=== PATIENT | female | born 1980 | race Caucasian/White ===

== ENCOUNTER → 2017-04-17 | Outpatient (CLI) | payer OTHER ==
--- NOTE | 2017-04-18 07:40 | MM ---
Reason for exam: follow-up at short interval from prior study. Last mammogram was performed 9 months ago. History: Family history of breast cancer in maternal aunt at age 50. Physical Findings: Nurse did not find any significant physical abnormalities on exam. MG Diagnostic Mammo w CAD JAYCOB Bilateral CC and MLO view(s) were taken. Prior study comparison: August 01, 2016, left breast MG work up mamm w CAD LT. July 17, 2016, bilateral MG screening mammo w CAD. The breast tissue is extremely dense which could obscure a lesion on mammography. Right upper outer quadrant architectural distortion and fibroadenoma. Left upper outer quadrant fibroadenoma 4.3cm from nipple. These results were verbally communicated with the patient and result sheet given to the patient on 04/17/17. ASSESSMENT: Incomplete: need additional imaging evaluation, BI-RAD 0 RECOMMENDATION: Ultrasound of both breasts. (upper outer quadrant)
--- NOTE | 2017-04-18 07:43 | USB ---
Reason for exam: additional evaluation requested from abnormal screening. History: Family history of breast cancer in maternal aunt at age 50. US Breast Limited BILAT Right breast ultrasound demonstrates dense tissue corresponding to bilateral fibroadenoma. Left breast ultrasound demonstrates dense tissue corresponding to bilateral fibroadenoma. These results were verbally communicated with the patient and result sheet given to the patient on 04/17/17. ASSESSMENT: Benign, BI-RAD 2 RECOMMENDATION: Routine screening mammogram of both breasts at age 40.
== END | disposition home or self-care (01) ==
LOC: RADMAMWWP 12:55
PROVIDERS: ATTEND Obstetrics & Gynecology
DX: N63 Unspecified lump in breast (principal); R92.8 Other abnormal and inconclusive findings on diagnostic imaging of breast
CPT/HCPCS: 76642; G0204

== ENCOUNTER → 2017-08-28 | Outpatient (CLI) | payer OTHER ==
--- NOTE | 2017-08-28 09:00 | XR ---
EXAMINATION TYPE: XR wrist limited LT DATE OF EXAM: 08/28/2017 COMPARISON: NONE HISTORY: Pain TECHNIQUE: Two views submitted. FINDINGS: The osseous structures are intact. The joint spaces are preserved and there is no acute fracture or dislocation. Soft tissue fullness along the palmar aspect of the wrist. IMPRESSION: 1. No osseous abnormality. If there is a soft tissue abnormality correlate with MRI.
== END | disposition home or self-care (01) ==
LOC: RADXRMAIN 08:38
PROVIDERS: ATTEND Family Medicine
DX: M67.432 Ganglion, left wrist (principal)

== ENCOUNTER → 2017-10-22 | Outpatient (CLI) | payer OTHER ==
--- NOTE | 2017-10-22 12:34 | US ---
EXAMINATION TYPE: US pelvis complete transvag DATE OF EXAM: 10/22/2017 COMPARISON: US CLINICAL HISTORY: Dysmenorrhea N94.6, N92.0 Menorrhagia. LLQ pain with heavy menses, ablation 2 years ago TECHNIQUE: Transvaginal (TV) and Transabdominal (TA) . Transabdominal sonographic images of the pel vis were acquired. Transvaginal sonographic images were medically necessary to better assess the fol lowing anatomy: Uterus, endometrium Date of LMP: 10/10/2017 EXAM MEASUREMENTS: Uterus: 10.2 x 4.6 x 5.7 cm Endometrial Stripe: 0.8 cm Right Ovary: 3.2 x 3.0 x 2.3 cm Left Ovary: 2.3 x 2.2 x 1.8 cm 1. Uterus: Anteverted Heterogeneous with probable fibroid anterior/left= 2.6 x 2.3 x 2.8 cm/ Fluid at scar= 1.2 x 0.7 x 1.1 cm 2. Endometrium: Unremarkable 3. Right Ovary: Dominant follicle = 2.1 x 1.6 x 1.8 cm 4. Left Ovary: wnl 5. Bilateral Adnexa: wnl 6. Posterior cul-de-sac: wnl IMPRESSION: 1. Redemonstration of diffuse heterogeneity of the myometrium with multiple probable intramural fibro ids the most pronounced measuring 2.8 cm anteriorly. 2. Fluid collection at the scar within the myometrium likely relates to a small seroma. 3. Endometrial thickness is within normal limits.
== END | disposition home or self-care (01) ==
LOC: RADUSWWP 10:38
PROVIDERS: ATTEND Obstetrics & Gynecology
DX: N85.8 Other specified noninflammatory disorders of uterus (principal); N92.0 Excessive and frequent menstruation with regular cycle; Z98.890 Other specified postprocedural states
CPT/HCPCS: 36415; 76830; 76856; 83001; 83002; 84146; 84443

== ENCOUNTER 2018-04-10 17:43 | Emergency (ER) | payer OTHER ==
[2018-04-10 17:53] VITALS: RESP 18
[2018-04-10] MEDS ORDERED: LIDOCAINE 1%-EPI 1:100,000 30 ML VIAL SQ STA (17:59)
[2018-04-10] MEDS ORDERED: DIPH,PERTUS(ACELL)TETVAC-LF 0.5 ML VIAL IM ONE (17:59)
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
[2018-04-10] MEDS ORDERED: ALPRAZolam 1 MG TAB PO STA (19:25)
--- NOTE | 2018-04-10 20:04 | CT ---
EXAMINATION TYPE: CT brain wo con DATE OF EXAM: 04/10/2018 COMPARISON: None HISTORY: Frontal head injury. Fell down stairs. CT DLP: 1036.3 mGycm. Automated Exposure Control for Dose Reduction was Utilized. TECHNIQUE: CT scan of the head is performed without contrast. FINDINGS: Ventricles and sulci appear normal. There is no mass effect nor midline shift. There is no sign of intracranial hemorrhage. The calvarium is intact. IMPRESSION: Negative CT scan of the brain.
[2018-04-10 20:36] VITALS: BP 141/89; PULSE 69; TEMP 98.4
== END 2018-04-10 20:35 | disposition home or self-care (01) ==
LOC: EC 17:43
DX: S01.81XA Laceration without foreign body of other part of head, initial encounter (principal); S01.511A Laceration without foreign body of lip, initial encounter; F41.9 Anxiety disorder, unspecified; Z79.1 Long term (current) use of non-steroidal anti-inflammatories (NSAID); Z79.3 Long term (current) use of hormonal contraceptives; Z79.899 Other long term (current) drug therapy; Z88.5 Allergy status to narcotic agent; Z23 Encounter for immunization; Y00.XXXA Assault by blunt object, initial encounter; Y93.89 Activity, other specified
CPT/HCPCS: 12013; 12014; 70450; 81025; 90471; 90715; 99284

== ENCOUNTER → 2018-04-17 | Outpatient (CLI) | payer OTHER ==
--- NOTE | 2018-04-17 09:56 | XR ---
EXAMINATION TYPE: XR ribs LT DATE OF EXAM: 04/17/2018 COMPARISON: NONE HISTORY: Palpable abnormality near the left third or fourth rib TECHNIQUE: 2 views FINDINGS: Visualized lung hilario clear. Osseous structures intact. IMPRESSION: No osseous abnormality. If there is concern for soft tissue anomaly correlate with MRI or ultrasound.
== END | disposition home or self-care (01) ==
LOC: RADXRMAIN 09:19
PROVIDERS: ATTEND Family Medicine
DX: R22.2 Localized swelling, mass and lump, trunk (principal)

== ENCOUNTER → 2018-06-02 | Outpatient (CLI) | payer OTHER ==
--- NOTE | 2018-06-02 14:56 | XR ---
EXAMINATION TYPE: XR chest 2V DATE OF EXAM: 06/02/2018 COMPARISON: NONE HISTORY: Shortness of breath, R07.89 TECHNIQUE: Frontal and lateral views of the chest are obtained. FINDINGS: There is no focal air space opacity, pleural effusion, or pneumothorax seen. The cardiac silhouette size is within normal limits. The osseous structures are intact. IMPRESSION: No acute cardiopulmonary process.
== END | disposition home or self-care (01) ==
LOC: RADXRMAIN 11:55
PROVIDERS: ATTEND Family Medicine
DX: R07.89 Other chest pain (principal)
CPT/HCPCS: 71046

== ENCOUNTER → 2018-07-22 | Outpatient (CLI) | payer OTHER ==
--- NOTE | 2018-07-22 22:44 | MR ---
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 Diffusion weighted imaging is performed. FINDINGS: No evidence for acute infarction, hemorrhage, mass, mass effect, midline shift, herniation, effacemen t of basal cisterns, or extra-axial fluid collection. The ventricles and sulci are age-appropriate. Major intracranial flow voids are intact. T2/FLAIR weighted sequences show minimal burden of white white matter change with approximately 5 foc i in total primarily in the left cerebral hemisphere located in the subcortical region. There is no a bnormal signal seen within the thalamus, hypothalamic region, brainstem Midline structures demonstrate normal morphology. The craniocervical junction is normal. Post contrast images demonstrate no evidence of pathologic enhancement. Dural venous sinuses are pat ent. Relatively symmetric enhancement of the cavernous sinuses. Mild mucosal thickening within the right maxillary sinus. Patient gave slightly divergent which may r eflect underlying history. No intraorbital lesion is seen. IMPRESSION: 1. Minimal burden of T2 bright white matter change primarily in the subcortical region of the left ce rebral hemisphere. Approximately 5 foci are present. These are nonspecific and may relate to early ch anges of chronic small vessel ischemic disease. Chronic migraines are also possible. In the appropria te clinical context, demyelinating disease could also be in the differential. 2. Otherwise, no intracranial abnormality seen.
== END | disposition home or self-care (01) ==
LOC: RADMRIMAIN 08:06
PROVIDERS: ATTEND Internal Medicine Critical Care Medicine
DX: R90.89 Other abnormal findings on diagnostic imaging of central nervous system (principal); Z88.5 Allergy status to narcotic agent
CPT/HCPCS: 70553; A9585

== ENCOUNTER → 2018-07-22 | Outpatient (CLI) | payer OTHER ==
--- NOTE | 2018-07-22 09:40 | CT ---
EXAMINATION TYPE: CT chest w con DATE OF EXAM: 07/22/2018 COMPARISON: None HISTORY: Randy's syndrome, chest pain. CT DLP: 175.5 mGycm Automated exposure control for dose reduction was used. CONTRAST: CT scan of the chest is performed with IV Contrast, patient injected with 100 mL of Isovue 300. FINDINGS: LUNGS: The lungs are grossly clear, there is no concerning parenchymal mass or nodule identified. T here is no pleural effusion or pneumothorax seen. The tracheobronchial tree is patent. MEDIASTINUM: There are no greater than 1 cm hilar or mediastinal lymph nodes. No pericardial effusi on is seen. Thoracic aorta is of normal caliber. The heart is not enlarged. 2 small calcified lymph nodes right hilar region. UPPER ABDOMEN: No significant abnormality appreciated. OTHER: No additional significant abnormality is seen. IMPRESSION: 1. No abnormality identified to account for the patient's symptoms.
== END | disposition home or self-care (01) ==
LOC: RADCTMAIN 08:16
PROVIDERS: ATTEND Internal Medicine Critical Care Medicine
DX: G90.2 Horner's syndrome (principal); Z88.5 Allergy status to narcotic agent
CPT/HCPCS: 71260; Q9967

== ENCOUNTER → 2019-04-21 | Outpatient (CLI) | payer OTHER | END | disposition home or self-care (01) | LOC: LABWHC1 12:54 | PROVIDERS: ATTEND Family Medicine | DX: L02.11 Cutaneous abscess of neck (principal) | CPT/HCPCS: 36415; 86618 ==

== ENCOUNTER 2020-05-03 18:18 | Emergency (ER) | payer OTHER ==
[2020-05-03 18:26] VITALS: TEMP 98.3
[2020-05-03 19:12] LABS: Basophils % (A) 0 %; Eosinophils # (A) 0.2 k/uL (0-0.7); Eosinophils % (A) 2 %; HCT 33.7 % (34.0-46.0); Lymphocytes # (A) 1.9 k/uL (1.0-4.8); Lymphocytes % (A) 19 %; MCH 30.2 pg (25.0-35.0); MCHC 32.7 g/dL (31.0-37.0); MCV 92.3 fL (80.0-100.0); Mean Platelet Volume 6.9; Monocytes # (A) 0.3 k/uL (0-1.0); Monocytes % (A) 3 %; Neutrophils # (A) 7.4 k/uL (1.3-7.7); Neutrophils % (A) 74 %; Platelet Count 259 k/uL (150-450); RBC 3.65 m/uL (3.80-5.40); RDW 12.7 % (11.5-15.5)
[2020-05-03 19:16] LABS: INR 0.9 (<1.2); Partial Thromboplastin Time 23.6 sec (22.0-30.0); Prothrombin Time 9.8 sec (9.0-12.0)
[2020-05-03 19:17] LABS: ALT 41 U/L (4-34); AST 50 U/L (14-36); African American GFR (CKD) >90 (>60 ml/min/1.73 sqM); Albumin 4.1 g/dL (3.5-5.0); Alkaline Phosphatase 65 U/L (38-126); Anion Gap 12 mmol/L; Blood Urea Nitrogen 15 mg/dL (7-17); Calcium 9.4 mg/dL (8.4-10.2); Carbon Dioxide 22 mmol/L (22-30); Chloride 105 mmol/L (98-107); Glucose 123 mg/dL (74-99); Non-African American GFR(CKD) >90 (>60 ml/min/1.73 sqM); Potassium 3.2 mmol/L (3.5-5.1); Sodium 139 mmol/L (137-145); Total Bilirubin 0.4 mg/dL (0.2-1.3)
--- NOTE | 2020-05-03 19:48 | ED ---
General Adult HPI - General Chief complaint: Skin/Abscess/Foreign Body Stated complaint: rt sided swelling Time Seen by Provider: 05/03/20 18:36 Source: patient, RN notes reviewed Mode of arrival: ambulatory Limitations: no limitations - History of Present Illness Initial comments: 39-year-old female with a past medical history of anemia, carpal tunnel presents to the emergency department for a chief complaint of bruising. Patient reports that 2 weeks ago she noticed a bruise on her left stark. Patient states the bruises were large and she did not remember hitting her stark on anything. Patient reports that started to go away and then she noticed a bruise on her right thigh. Patient states today when she woke up she had a large bruise on her right breast. States that this alarmed her so she came to the emergency room. Patient does take iron for anemia. No blood disorders. No blood thinners.Patient has no other complaints at this time including shortness of breath, chest pain, abdominal pain, nausea or vomiting, headache, or visual ch anges. - Related Data Home Medications Medication Instructions Recorded Confirmed Naproxen 500 mg PO BID 04/10/18 05/03/20 Albuterol Inhaler [Ventolin Hfa 1 puff INHALATION RT-QID PRN 05/03/20 05/03/20 Inhaler] Ferrous Sulfate [Feosol] 325 mg PO DAILY 05/03/20 05/03/20 Fluticasone Propion/Salmeterol 1 inhalation PO RT-BID 05/03/20 05/03/20 [Wixela 250-50 Inhub] Montelukast [Singulair] 10 mg PO HS 05/03/20 05/03/20 Multivitamins, Thera [Multivitamin 1 tab PO DAILY 05/03/20 05/03/20 (formulary)] Norgestimate-Ethinyl Estradiol 1 tab PO DAILY 05/03/20 05/03/20 [Tri-Sprintec Tablet] Prazosin HCl 2 mg PO DAILY 05/03/20 05/03/20 Vortioxetine Hydrobromide 5 mg PO DAILY 05/03/20 05/03/20 [Trintellix] busPIRone HCL 15 mg PO BID 05/03/20 05/03/20 clonazePAM 1 mg PO BID 05/03/20 05/03/20 Allergies Allergy/AdvReac Type Severity Reaction Status Date / Time morphine AdvReac Itching Verified 05/03/20 19:25 Review of Systems ROS Statement: Those systems with pertinent positive or pertinent negative responses have been documented in the HPI. ROS Other: All systems not noted in ROS Statement are negative. Past Medical History Past Medical History: No Reported History Additional Past Medical History / Comment(s): ANEMIA, carpal tunnel. History of Any Multi-Drug Resistant Organisms: None Reported Past Surgical History: Section, Tubal Ligation, Uterine Ablation Past Psychological History: Anxiety, PTSD Smoking Status: Never smoker Past Alcohol Use History: Occasional Past Drug Use History: Marijuana - Past Family History Mother Family Medical History: Cancer Father Family Medical History: No Reported History General Exam Limitations: no limitations General appearance: alert, in no apparent distress Head exam: Present: atraumatic, normocephalic, normal inspection Eye exam: Present: normal appearance, PERRL, EOMI. Absent: scleral icterus, conjunctival injection, periorbital swelling, other (No petechiae) ENT exam: Present: normal exam, mucous membranes moist Neck exam: Present: normal inspection, full ROM. Absent: tenderness, men ingismus, lymphadenopathy Respiratory exam: Present: normal lung sounds bilaterally, other (There is a bruise about 6 cm x 5 cm noted on patient's right breast). Absent: respiratory distress, wheezes, rales, rhonchi, stridor Cardiovascular Exam: Present: regular rate, normal rhythm, normal heart sounds. Absent: systolic murmur, diastolic murmur, rubs, gallop, clicks GI/Abdominal exam: Present: soft, normal bowel sounds. Absent: distended, tenderness, guarding, rebound, rigid Neurological exam: Present: alert Psychiatric exam: Present: normal affect, normal mood Course Vital Signs 05/03/20 05/03/20 05/03/20 18:20 19:18 21:06 Temperature 98.3 F 98.3 F Pulse Rate 105 H 85 77 Respiratory 18 19 18 Rate Blood Pressure 131/76 125/74 140/83 O2 Sat by Pulse 96 97 96 Oximetry Medical Decision Making - Medical Decision Making Vitals are stable. Hemoglobin is 11, patient has a history of chronic anemia. CMP is unremarkable. Potassium is minimally low, patient will have this repeated. No chest pain or palpitations. Liver enzymes are normal. Ultrasound shows no evidence of DVT in the right lower extremity. Inguinal adenopathy is present. At this time patient is discharged home to follow up with her doctor. However she has worsening symptoms she will return to the emergency room. - Lab Data Result diagrams: 05/03/20 18:58 05/03/20 18:58 Lab Results 05/03/20 05/03/20 05/03/20 Range/Units 18:58 18:58 18:58 WBC 10.0 (3.8-10.6) k/uL RBC 3.65 L (3.80-5.40) m/uL Hgb 11.0 L (11.4-16.0) gm/dL Hct 33.7 L (34.0-46.0) % MCV 92.3 (80.0-100.0) fL MCH 30.2 (25.0-35.0) pg MCHC 32.7 (31.0-37.0) g/dL RDW 12.7 (11.5-15.5) % Plt Count 259 (150-450) k/uL Neutrophils % 74 % Lymphocytes % 19 % Monocytes % 3 % Eosinophils % 2 % Basophils % 0 % Neutrophils # 7.4 (1.3-7.7) k/uL Lymphocytes # 1.9 (1.0-4.8) k/uL Monocytes # 0.3 (0-1.0) k/uL Eosinophils # 0.2 (0-0.7) k/uL Basophils # 0.0 (0-0.2) k/uL PT 9.8 (9.0-12.0) sec INR 0.9 (<1.2) APTT 23.6 (22.0-30.0) sec Sodium 139 (137-145) mmol/L Potassium 3.2 L (3.5-5.1) mmol/L Chloride 105 (98-107) mmol/L Carbon Dioxide 22 (22-30) mmol/L Anion Gap 12 mmol/L BUN 15 (7-17) mg/dL Creatinine 0.70 (0.52-1.04) mg/dL Est GFR (CKD-EPI)AfAm >90 (>60 ml/min/1.73 sqM) Est GFR (CKD-EPI)NonAf >90 (>60 ml/min/1.73 sqM) Glucose 123 H (74-99) mg/dL Calcium 9.4 (8.4-10.2) mg/dL Total Bilirubin 0.4 (0.2-1.3) mg/dL AST 50 H (14-36) U/L ALT 41 H (4-34) U/L Alkaline Phosphatase 65 (38-126) U/L Total Protein 7.0 (6.3-8.2) g/dL Albumin 4.1 (3.5-5.0) g/dL Disposition Clinical Impression: Bruising, Inguinal lymphadenopathy Disposition: HOME SELF-CARE Condition: Good Instructions (If sedation given, give patient instructions): Lymphadenopathy (ED) Additional Instructions: Please follow-up with your doctor by calling tomorrow morning for earliest appointment. If you have any worsening symptoms return here to the emergency room. Is patient prescribed a controlled substance at d/c from ED?: No Referrals: Yaya Cheung DO [Primary Care Provider] - 1-2 days Time of Disposition: 21:25
--- NOTE | 2020-05-03 20:53 | US ---
EXAMINATION TYPE: US venous doppler duplex LE RT DATE OF EXAM: 05/03/2020 7:49 PM COMPARISON: NONE CLINICAL HISTORY: ecchymosis. Ecchymosis and swelling in right lower extremity x 2 weeks. No hx of DT . Patient is anemic, not taking blood thinners. SIDE PERFORMED: Right TECHNIQUE: The lower extremity deep venous system is examined utilizing real time linear array sonog [place] with graded compression, doppler sonography and color-flow sonography. VESSELS IMAGED: External Iliac Vein (EIV) Common Femoral Vein Deep Femoral Vein Greater Saphenous Vein * Femoral Vein Popliteal Vein Small Saphenous Vein * Proximal Calf Veins (* superficial vessels) Right Leg: No evidence of DVT in veins imaged at this time from prox calf veins to EIV. Two hypoecho ic areas with hyperechoic centers seen within the right groin. #1: 2.2 x 2.1 x 1.0 cm. #2: 1.6 x 1.4 x 1.0 cm. IMPRESSION: 1. No ultrasound evidence of right lower extremity deep venous thrombosis. 2. Inguinal adenopathy
[2020-05-03 21:08] VITALS: BP 140/83; PULSE 77; RESP 18
== END 2020-05-03 21:37 | disposition home or self-care (01) ==
LOC: EC 18:18
DX: S20.01XA Contusion of right breast, initial encounter (principal); S70.11XA Contusion of right thigh, initial encounter; R59.0 Localized enlarged lymph nodes; D64.89 Other specified anemias; Z88.5 Allergy status to narcotic agent; F41.9 Anxiety disorder, unspecified; F43.10 Post-traumatic stress disorder, unspecified; X58.XXXA Exposure to other specified factors, initial encounter
CPT/HCPCS: 36415; 80053; 85025; 85610; 85730; 99284

== ENCOUNTER → 2020-07-15 | Outpatient (CLI) | payer OTHER ==
[2020-07-15 12:06] LABS: Basophils % (A) 0 %; Eosinophils # (A) 0.2 k/uL (0-0.7); Eosinophils % (A) 2 %; HCT 38.8 % (34.0-46.0); HGB 13.1 gm/dL (11.4-16.0); Lymphocytes # (A) 1.9 k/uL (1.0-4.8); Lymphocytes % (A) 18 %; MCH 31.3 pg (25.0-35.0); MCHC 33.8 g/dL (31.0-37.0); MCV 92.8 fL (80.0-100.0); Mean Platelet Volume 6.8; Monocytes # (A) 0.4 k/uL (0-1.0); Monocytes % (A) 4 %; Neutrophils # (A) 8.1 k/uL (1.3-7.7); Neutrophils % (A) 75 %; Platelet Count 269 k/uL (150-450); RBC 4.18 m/uL (3.80-5.40); WBC 10.7 k/uL (3.8-10.6)
[2020-07-15 12:21] LABS: D-Dimer 0.29 mg/L FEU (<0.60); Prothrombin Time 10.1 sec (9.0-12.0)
[2020-07-15 20:02] LABS: % Iron Saturation 25.06 (12.00-45.00); African American GFR (CKD) 126.5 (60.0-200.0); Albumin 4.4 g/dL (3.80-4.90); Albumin/Globulin Ratio 1.76 (1.60-3.17); Anion Gap 9.6 mmol/L (4.00-12.00); BUN/Creat Ratio 22.86 Ratio (12.00-20.00); Calcium 9.2 mg/dL (8.7-10.3); Carbon Dioxide 25.4 mmol/L (21.6-31.8); Globulin 2.5 g/dL (1.6-3.3); Magnesium 1.8 mg/dL (1.5-2.4); Non-African American GFR(CKD) 109.1 (60.0-200.0); Potassium 3.9 mmol/L (3.5-5.5); Total Bilirubin 0.3 mg/dL (0.2-1.2); Total Protein 6.9 g/dL (6.2-8.2)
[2020-07-15 20:11] LABS: Ferritin 71.8 ng/mL (10.0-291.0)
[2020-07-15 20:26] LABS: Cardiolipin IgA Antibody 0.5 U/mL
[2020-07-15 20:30] LABS: Cardiolipin Ab IgG Interp NEGATIVE (NEGATIVE); Cardiolipin Ab IgM Interp NEGATIVE (NEGATIVE); Cardiolipin IgM Antibody 0.3 U/mL
[2020-07-15 21:52] LABS: Folate, Serum 15.8 ng/mL
== END | disposition home or self-care (01) ==
LOC: LABWHC1 11:13
PROVIDERS: ATTEND Nurse Practitioner Family
DX: R59.0 Localized enlarged lymph nodes (principal); T14.8XXA Other injury of unspecified body region, initial encounter; R20.2 Paresthesia of skin; R58 Hemorrhage, not elsewhere classified
CPT/HCPCS: 36415; 80053; 82306; 82607; 82728; 82746; 83090; 83540; 83550; 83735; 84443; 85025; 85300; 85303; 85306; 85379; 85610; 85613; 85652; 85730; 86147; 86592

== ENCOUNTER → 2020-07-22 | Outpatient (CLI) | payer OTHER ==
--- NOTE | 2020-07-22 14:27 | US ---
EXAMINATION TYPE: US venous doppler duplex LE DATE OF EXAM: 07/22/2020 1:52 PM COMPARISON: NONE CLINICAL HISTORY: M79.604 Pain in Right Leg. Pain SIDE PERFORMED: Bilateral TECHNIQUE: The lower extremity deep venous system is examined utilizing real time linear array sonog [place] with graded compression, doppler sonography and color-flow sonography. VESSELS IMAGED: Common Femoral Vein Deep Femoral Vein Greater Saphenous Vein * Femoral Vein Popliteal Vein Small Saphenous Vein * Proximal Calf Veins (* superficial vessels) Right Leg: Negative for DVT Hypoechoic area seen 1.8 x 1.1 cm as seen on previous. Left Leg: Negative for DVT IMPRESSION: 1. No deep venous thrombosis bilateral lower extremities. 2. Stable hypoechoic area with some central isodensity may be a lymph node
== END | disposition home or self-care (01) ==
LOC: RADUSWWP 13:20
PROVIDERS: ATTEND Nurse Practitioner Family
DX: M79.604 Pain in right leg (principal); R20.2 Paresthesia of skin
CPT/HCPCS: 81291; 93970

== ENCOUNTER → 2020-08-22 | Outpatient (CLI) | payer OTHER ==
--- NOTE | 2020-08-22 16:20 | CT ---
EXAMINATION TYPE: CT ChestAbdPelvis w con DATE OF EXAM: 08/22/2020 COMPARISON: Prior CT chest 07/22/2018 HISTORY: Lymphadenopathy M 54.5 CT DLP: 978.60 mGycm Automated exposure control for dose reduction was used. CONTRAST: CT scan of the chest, abdomen and pelvis is performed with Oral Contrast and with IV Contrast, patien t injected with 100 ml mL of Isovue 300. FINDINGS: LUNGS: The lungs are grossly clear, there is no concerning parenchymal mass or nodule identified. T here is no pleural effusion or pneumothorax seen. The tracheobronchial tree is patent. MEDIASTINUM: There are no greater than 1 cm hilar or mediastinal lymph nodes. No pericardial effusi on is seen. AORTA: No significant abnormality is seen. OTHER: No additional significant abnormality is seen. LIVER/GB: Liver shows low attenuation possibly due to hepatic steatosis, liver is enlarged. PANCREAS: No significant abnormality is seen. SPLEEN: No significant abnormality is seen. ADRENALS: No significant abnormality is seen. KIDNEYS: No significant abnormality is seen. Cortical cyst present at the lower pole the left kidney measures only approximately 9 mm REPRODUCTIVE ORGANS: No gross abnormality seen. BOWEL: There is some thickening of the rectum which is indeterminate, axial image #108, difficult to exclude a mucosal lesion, there is no evident bowel obstruction. The appendix is not seen. FREE AIR: No Free Air visible. ASCITES: None seen. RETROPERITONEAL ADENOPATHY: No retroperitoneal adenopathy is seen. LYMPH NODES: No greater than 1 cm abdominal or pelvic lymph nodes are appreciated. URINARY BLADDER: No significant abnormality is seen. PELVIC ADENOPATHY: None visualized. OSSEOUS STRUCTURES: No significant abnormality is seen. IMPRESSION: Consider bowel surveillance, indeterminate thickening of the rectum wall. Hepatic steatos is, there is hepatomegaly
== END | disposition home or self-care (01) ==
LOC: RADCTMAIN 11:41
PROVIDERS: ATTEND Internal Medicine Hematology & Oncology
DX: K76.0 Fatty (change of) liver, not elsewhere classified (principal); R16.0 Hepatomegaly, not elsewhere classified; Z88.6 Allergy status to analgesic agent
CPT/HCPCS: 71260; 74177; Q9967

== ENCOUNTER → 2020-10-13 | Outpatient (CLI) | payer OTHER ==
--- NOTE | 2020-10-17 09:25 | MM ---
Reason for exam: screening (asymptomatic). Last mammogram was performed 3 years and 6 months ago. History: Family history of breast cancer in maternal aunt at age 50. Physical Findings: A clinical breast exam by your physician is recommended on an annual basis and results should be correlated with mammographic findings. MG Screening Mammo w CAD Bilateral CC and MLO view(s) were taken. Prior study comparison: April 17, 2017, bilateral MG diagnostic mammo w CAD JAYCOB. August 01, 2016, left breast MG work up mamm w CAD LT. The breast tissue is extremely dense which could obscure a lesion on mammography. No significant changes when compared with prior studies. ASSESSMENT: Benign, BI-RAD 2 RECOMMENDATION: Routine screening mammogram of both breasts in 1 year.
== END | disposition home or self-care (01) ==
LOC: RADMAMWWP 12:24
PROVIDERS: ATTEND Obstetrics & Gynecology
DX: Z12.31 Encounter for screening mammogram for malignant neoplasm of breast (principal)
CPT/HCPCS: 77067

== ENCOUNTER 2020-10-26 07:52 | Day surgery (SDC) | payer OTHER ==
[2020-10-24 09:19] VITALS: BMI 28.8
[~2020-10-26 07:52] MED LIST: LACTATED RINGERS 1,000 ML IV SCH; LIDOCAINE 1% (10MG/ML) FOR IV START INTRADERMA PRN
[2020-10-26 08:18] VITALS: TEMP 98.1
--- NOTE | 2020-10-26 08:32 | P.GSHP ---
History of Present Illness H&P Date: 10/26/20 CHIEF COMPLAINT: Colon screen HISTORY OF PRESENT ILLNESS: The patient is a 40-year-old female who presents for colon screen. Lower endoscopy was offered for further evaluation and management. PAST MEDICAL HISTORY: Please see list. PAST SURGICAL HISTORY: Please see list. MEDICATIONS: Please see list. ALLERGIES: Please see list. SOCIAL HISTORY: No illicit drug use FAMILY HISTORY: No reports of Crohn disease or ulcerative colitis. REVIEW OF ORGAN SYSTEMS: CONSTITUTIONAL: No reports of fevers or chills. PHYSICAL EXAM: VITAL SIGNS: Stable GENERAL: Well-developed pleasant in no acute distress. HEENT: No scleral icterus. Extraocular movements grossly intact. Moist buccal mucosa. NECK: Supple without lymphadenopathy. CHEST: Unlabored respirations. Equal bilateral excursions. CARDIOVASCULAR: Regular rate and rhythm. Distal 2+ pulses. ABDOMEN: Soft, nontender, nondistended. MUSCULOSKELETAL: No clubbing, cyanosis, or edema. ASSESSMENT: 1. Colon screen. PLAN: 1. Recommend proceeding with a lower endoscopy Past Medical History Past Medical History: Asthma, Hypertension Additional Past Medical History / Comment(s): ANEMIA, carpal tunnel History of Any Multi-Drug Resistant Organisms: None Reported Past Surgical History: Section, Tubal Ligation, Uterine Ablation Additional Past Surgical History / Comment(s): wisdom teeth Past Anesthesia/Blood Transfusion Reactions: No Reported Reaction Smoking Status: Never smoker - Past Family History Mother Family Medical History: Cancer Father Family Medical History: No Reported History Medications and Allergies Home Medications Medication Instructions Recorded Confirmed Type Naproxen 500 mg PO BID 04/10/18 10/26/20 History Albuterol Inhaler [Ventolin Hfa 1 puff INHALATION RT-QID PRN 05/03/20 10/26/20 History Inhaler] Ferrous Sulfate [Feosol] 325 mg PO DAILY 05/03/20 10/26/20 History Montelukast [Singulair] 10 mg PO HS 05/03/20 10/26/20 History Multivitamins, Thera [Multivitamin 1 tab PO DAILY 05/03/20 10/26/20 History (formulary)] Norgestimate-Ethinyl Estradiol 1 tab PO DAILY 05/03/20 10/26/20 History [Tri-Sprintec Tablet] Potassium Chloride ER [K-Dur 20] 20 meq PO DAILY #3 tab 05/03/20 10/26/20 Rx Prazosin HCl 2 mg PO HS 05/03/20 10/26/20 History Vortioxetine Hydrobromide 5 mg PO DAILY 05/03/20 10/26/20 History [Trintellix] busPIRone HCL 15 mg PO BID 05/03/20 10/26/20 History clonazePAM 1 mg PO BID 05/03/20 10/26/20 History Fluticasone/Salmeterol [Advair 1 puff INHALATION BID 10/24/20 10/26/20 History 250-50 Diskus] Allergies Allergy/AdvReac Type Severity Reaction Status Date / Time morphine Allergy Itching Verified 10/24/20 09:13 Surgical - Exam Vital Signs Temp Pulse Resp BP Pulse Ox 98.1 F 83 16 129/71 98 10/26/20 08:13 10/26/20 08:13 10/26/20 08:13 10/26/20 08:13 10/26/20 08:13
[2020-10-26] MEDS ORDERED: PROPOFOL 10 MG/ML 20 ML VIAL IV ONE (08:33)
[2020-10-26] MEDS ORDERED: LIDOCAINE 1% INJ 10MG/ML (20 ML MDV) ONE (08:33)
[2020-10-26 08:57] VITALS: PULSE 74
[2020-10-26 09:17] VITALS: BP 139/78; RESP 16
--- NOTE | 2020-10-26 09:19 | P.PCN ---
Date of Procedure: 10/26/20 Description of Procedure: PREOPERATIVE DIAGNOSIS: Anemia Abnormal computed tomography scan of the colon and rectum Family history colon cancer POSTOPERATIVE DIAGNOSIS: Anemia Abnormal computed tomography scan of the colon and rectum Family history colon cancer OPERATION: Colonoscopy to the cecum, ileocecal valve and appendiceal orifice. Colonoscopy with random biopsies cold forceps SURGEON: Maddy Najera MD. ANESTHESIA: MAC. INDICATIONS: The patient is a 40-year-old female who presents with a normal computed tomography scan of the colon and rectum including anemia family history of colon cancer. Benefits and risks were described and informed consent was obtained. DESCRIPTION OF PROCEDURE: The patient had undergone Gatorade, MiraLAX and Dulcolax prep. The patient had been brought into the operating room and laid in the left lateral decubitus position. After adequate intravenous sedation, the rectum was examined with 2% lidocaine jelly. No external hemorrhoids were encountered. The rectal tone was within normal limits. No lesions were palpated in the rectal vault. An Olympus colonoscope was advanced until the cecum, ileocecal valve and appendiceal orifice were clearly viewed. The prep was good. No scattered diverticulosis was encountered. No colonic polyps were found. Random biopsies with cold forceps were obtained for microscopic colitis as the cause of anemia. Retroflexion of the scope demonstrated grade 1 internal hemorrhoids without active bleeding or inflammation. The colon was desufflated. The patient had tolerated the procedure well. Withdrawal time was over 6 minutes. FINDINGS: Aronchick preparation quality scale 2 (1-5) Internal hemorrhoids, grade 1 No external prolapsed hemorrhoids. No arteriovenous malformations. No adenomatous polyps. Random biopsies obtained for microscopic colitis as the cause of anemia RECOMMENDATIONS: Lower endoscopy in 5 years, 2025 Plan - Discharge Summary Discharge Rx Participant: No New Discharge Prescriptions: Continue Naproxen 500 mg PO BID Albuterol Inhaler [Ventolin Hfa Inhaler] 1 puff INHALATION RT-QID PRN PRN Reason: Shortness Of Breath Vortioxetine Hydrobromide [Trintellix] 5 mg PO DAILY Multivitamins, Thera [Multivitamin (formulary)] 1 tab PO DAILY Ferrous Sulfate [Iron (65 MG Elemental)] 325 mg PO DAILY clonazePAM 1 mg PO BID Prazosin HCl 2 mg PO HS Norgestimate-Ethinyl Estradiol [Tri-Sprintec Tablet] 1 tab PO DAILY Montelukast [Singulair] 10 mg PO HS busPIRone HCL 15 mg PO BID Potassium Chloride ER [K-Dur 20] 20 meq PO DAILY #3 tab Fluticasone/Salmeterol [Advair 250-50 Diskus] 1 puff INHALATION BID Discharge Medication List Naproxen 500 mg PO BID 04/10/18 [History] Albuterol Inhaler [Ventolin Hfa Inhaler] 1 puff INHALATION RT-QID PRN 05/03/20 [History] Ferrous Sulfate [Iron (65 MG Elemental)] 325 mg PO DAILY 05/03/20 [History] Montelukast [Singulair] 10 mg PO HS 05/03/20 [History] Multivitamins, Thera [Multivitamin (formulary)] 1 tab PO DAILY 05/03/20 [Hi story] Norgestimate-Ethinyl Estradiol [Tri-Sprintec Tablet] 1 tab PO DAILY 05/03/20 [History] Potassium Chloride ER [K-Dur 20] 20 meq PO DAILY #3 tab 05/03/20 [Rx] Prazosin HCl 2 mg PO HS 05/03/20 [History] Vortioxetine Hydrobromide [Trintellix] 5 mg PO DAILY 05/03/20 [History] busPIRone HCL 15 mg PO BID 05/03/20 [History] clonazePAM 1 mg PO BID 05/03/20 [History] Fluticasone/Salmeterol [Advair 250-50 Diskus] 1 puff INHALATION BID 10/24/20 [History] Follow up Appointment(s)/Referral(s): Maddy Najera MD [STAFF PHYSICIAN] - 11/08/20 Patient Instructions/Handouts: *[facility] - (Anesthesia) Endoscopy Discharge Instructions, Colonoscopy (DC) Activity/Diet/Wound Care/Special Instructions: Lower endoscopy as needed Discharge Disposition: HOME SELF-CARE
== END 2020-10-26 10:02 | disposition home or self-care (01) ==
LOC: ORWHC2ENDO 07:52
PROVIDERS: ATTEND Surgery Plastic and Reconstructive Surgery
DX: D64.9 Anemia, unspecified (principal); R94.8 Abnormal results of function studies of other organs and systems; K64.0 First degree hemorrhoids; Z80.0 Family history of malignant neoplasm of digestive organs; F32.9 Major depressive disorder, single episode, unspecified; J45.909 Unspecified asthma, uncomplicated; I10 Essential (primary) hypertension; G56.00 Carpal tunnel syndrome, unspecified upper limb; Z98.51 Tubal ligation status; Z98.891 History of uterine scar from previous surgery; Z98.890 Other specified postprocedural states; Z80.9 Family history of malignant neoplasm, unspecified; Z79.1 Long term (current) use of non-steroidal anti-inflammatories (NSAID); Z79.3 Long term (current) use of hormonal contraceptives; Z79.51 Long term (current) use of inhaled steroids; Z79.899 Other long term (current) drug therapy; Z88.5 Allergy status to narcotic agent
CPT/HCPCS: 81025; 88305; 45380; J2001; J2704

== ENCOUNTER → 2021-06-12 | Outpatient (CLI) | payer OTHER ==
--- NOTE | 2021-06-13 05:38 | MR ---
EXAMINATION TYPE: MR brain wo/w con DATE OF EXAM: 06/12/2021 COMPARISON: 07/22/2018 HISTORY: Migraine without aura CONTRAST: Standard multiplanar, multisequence MRI departmental protocol utilizing 8 mL intravenous Gadavist nat olinium contrast. Ventricles have fairly normal size. There is no mass effect nor midline shift. Diffusion images show no evidence of an acute infarct. Brainstem is intact. Brooke-white matter structures have fairly normal signal pattern. There is no evidence of cerebral edema. Corpus callosum appears normal. Sella turcic a appears normal. There is no evidence of orbital mass. There is a single 4 mm focus of increased sig nal in the white matter left parietal lobe. Contrast images show no pathologic enhancement. There is normal enhancement of the venous sinuses. IMPRESSION: Single small white matter high signal focus in the left parietal lobe of doubtful significance. No ch estefania.
== END | disposition home or self-care (01) ==
LOC: RADMRIMAIN 07:49
PROVIDERS: ATTEND Family Medicine
DX: G43.009 Migraine without aura, not intractable, without status migrainosus (principal)
CPT/HCPCS: 70553; A9585

== ENCOUNTER 2021-09-04 11:10 | Day surgery (SDC) | payer OTHER ==
[2021-09-04 08:26] VITALS: BMI 28.3
[2021-09-04 11:43] VITALS: RESP 16; TEMP 97.2
[2021-09-04] MEDS ORDERED: LACTATED RINGERS 1,000 ML IV ONE (11:51)
[2021-09-04] MEDS ORDERED: ONDANSETRON 4 MG/2 ML VIAL ONE (12:08)
[2021-09-04] MEDS ORDERED: DEXAMETHASONE SOD PHOSPHATE 4 MG/ML 1 ML VIAL IVP ONE (12:12)
[2021-09-04] MEDS ORDERED: MIDAZOLAM 2 MG/2 ML VIAL ONE (12:33)
[2021-09-04] MEDS ORDERED: PROPOFOL 10 MG/ML 20 ML VIAL IV ONE (12:33)
[2021-09-04] MEDS ORDERED: fentaNYL (PF) 50 MCG/ML 2 ML AMP ONE (12:33)
[2021-09-04] MEDS ORDERED: LIDOCAINE 1%-EPI 1:100,000 20 ML VIAL SQ ONE ×2 (13:10→13:20)
[2021-09-04] MEDS ORDERED: BUPIVACAINE (PF) 0.5% 30 ML VIAL SQ ONE ×2 (13:10→13:20)
--- NOTE | 2021-09-04 13:34 | P.OP ---
Date of Procedure: 09/04/21 Preoperative Diagnosis: Right carpal tunnel syndrome Postoperative Diagnosis: Same Procedure(s) Performed: Right endoscopic carpal tunnel release Anesthesia: MAC Surgeon: Hazel Cisse Estimated Blood Loss (ml): 0 Disposition: PACU Indications for Procedure: Pina is a 40-year-old female with several years of numbness and tingling in her right hand in the median distribution. She's had transient relief with injections and EMG that shows that she has mild carpal tunnel syndrome. We talked about surgical and nonsurgical options and she elects to proceed with surgical intervention. Operative Findings: Patient, operative extremity, and procedure were identified in the preoperative holding area. After informed consent was obtained the patient was brought back to the operating room. After sedation was provided by the anesthesia team and local block with 1% lidocaine with epi and half percent Marcaine was injected. Following this the extremity was prepped and draped in normal sterile fashion with a tourniquet along the patient's brachium. After formal timeout was performed the tourniquet was inflated. Transverse incision was made just ulnar to the palmaris longus tendon in the proximal wrist crease. Dissection was carried down to the forearm fascia which was released proximally about a centimeter. Carpal tunnel was then accessed through the incision with serial dilators and scraping 12. The micro-air cannula was then inserted. The transverse carpal ligament was visualized and there is no other soft tissue seen with the scope. Attention was first turned to the distal aspect of the transverse carpal ligament. Once the end was identified with palpation and visualizing the fat pad, the blade was deployed. The transverse carpal ligament was then transected in its entirety under direct visualization. This was confirmed visually with the scope and again once the instruments were removed using a dilator tool. Tourniquet was let down, hemostasis was achieved and the wound was closed with 4-0 Monocryl and skin glue. Wound was dressed with Adaptic Kerlix and a Coban wrap. Plan - Discharge Summary Discharge Rx Participant: Yes New Discharge Prescriptions: No Action Naproxen 500 mg PO BID Albuterol Inhaler [Ventolin Hfa Inhaler] 1 puff INHALATION RT-QID PRN PRN Reason: Shortness Of Breath Vortioxetine Hydrobromide [Trintellix] 5 mg PO DAILY Multivitamins, Thera [Multivitamin (formulary)] 1 tab PO DAILY Ferrous Sulfate [Iron (65 MG Elemental)] 325 mg PO DAILY clonazePAM 1 mg PO BID Prazosin HCl 2 mg PO HS Montelukast [Singulair] 10 mg PO HS busPIRone HCL 15 mg PO BID Fluticasone/Salmeterol [Advair 250-50 Diskus] 1 puff INHALATION BID hydrOXYzine HCL [Atarax] 50 mg PO HS Discharge Medication List Naproxen 500 mg PO BID 04/10/18 [History] Albuterol Inhaler [Ventolin Hfa Inhaler] 1 puff INHALATION RT-QID PRN 05/03/20 [History] Ferrous Sulfate [Iron (65 MG Elemental)] 325 mg PO DAILY 05/03/20 [History] Montelukast [Singulair] 10 mg PO HS 05/03/20 [History] Multivitamins, Thera [Multivitamin (formulary)] 1 tab PO DAILY 05/03/20 [History] Prazosin HCl 2 mg PO HS 05/03/20 [History] Vortioxetine Hydrobromide [Trintellix] 5 mg PO DAILY 05/03/20 [History] busPIRone HCL 15 mg PO BID 05/03/20 [History] clonazePAM 1 mg PO BID 05/03/20 [History] Fluticasone/Salmeterol [Advair 250-50 Diskus] 1 puff INHALATION BID 10/24/20 [History] hydrOXYzine HCL [Atarax] 50 mg PO HS 09/04/21 [History]
[2021-09-04 13:53] VITALS: BP 135/85; PULSE 63
== END 2021-09-04 14:03 | disposition home or self-care (01) ==
LOC: OR 11:10
PROVIDERS: ATTEND Orthopaedic Surgery Hand Surgery
DX: G56.01 Carpal tunnel syndrome, right upper limb (principal); I10 Essential (primary) hypertension; J45.909 Unspecified asthma, uncomplicated; F41.9 Anxiety disorder, unspecified; F43.10 Post-traumatic stress disorder, unspecified; D64.9 Anemia, unspecified; Z79.899 Other long term (current) drug therapy; Z88.5 Allergy status to narcotic agent; Z98.891 History of uterine scar from previous surgery
CPT/HCPCS: 81025; 29848; J2250; J1100; J2405; J3010; J2704

== ENCOUNTER 2021-09-18 11:08 | Day surgery (SDC) | payer OTHER ==
[2021-09-12 16:15] VITALS: BMI 33.5
[~2021-09-18 11:08] MED LIST changes: +DEXAMETHASONE SOD PHOSPHATE 4 MG/ML 1 ML VIAL IV ONE; +Pre Op ABX Message 1 EACH MISC MISCELLANE ONE; +SCOPOLAMINE 1.5MG/72HR PATCH TRANSDERM ONE; +fentaNYL (PF) 50 MCG/ML 2 ML AMP IV PRN
[2021-09-18 12:08] VITALS: RESP 16; TEMP 98.3
[2021-09-18] MEDS ORDERED: DEXAMETHASONE SOD PHOSPHATE 4 MG/ML 1 ML VIAL IVP ONE (12:19)
[2021-09-18] MEDS ORDERED: ONDANSETRON 4 MG/2 ML VIAL ONE (13:00)
[2021-09-18] MEDS ORDERED: ONDANSETRON 4 MG/2 ML VIAL IVP ONE (13:13)
[2021-09-18] MEDS ORDERED: fentaNYL (PF) 50 MCG/ML 2 ML AMP ONE (17:38)
[2021-09-18] MEDS ORDERED: HYDROmorphone (PF) 1 MG/ML ONE (17:38)
[2021-09-18] MEDS ORDERED: PROPOFOL 10 MG/ML 20 ML VIAL IV ONE (17:38)
[2021-09-18] MEDS ORDERED: KETAMINE 10 MG/ML 20 ML VIAL ONE (17:38)
[2021-09-18] MEDS ORDERED: MIDAZOLAM 2 MG/2 ML VIAL ONE (17:38)
[2021-09-18] MEDS ORDERED: BUPIVACAINE (PF) 0.5% 30 ML VIAL SQ ONE ×2 (17:54)
[2021-09-18] MEDS ORDERED: LIDOCAINE 1%-EPI 1:100,000 20 ML VIAL SQ ONE ×2 (17:55)
[2021-09-18] MEDS ORDERED: LACTATED RINGERS 1,000 ML IV ONE (18:06)
[2021-09-18] MEDS ORDERED: HYDROcodone/APAP 5-325MG 1 EACH TAB ONE (19:49)
[2021-09-18] MEDS ORDERED: HYDROcodone/APAP 5-325MG 1 EACH TAB PO ONE (19:52)
[2021-09-18 20:03] VITALS: BP 127/67; PULSE 76
--- NOTE | 2021-09-18 20:15 | P.OP ---
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 She's had some chronic weakness and numbness following that injury. However she has had some increased weakness and numbness in all of her fingers in the last couple of years. 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 She has a positive Wartenberg's and is unable to cross her fingers. She has numbness in all of her fingertips as well as a positive Tinel's in the carpal cubital and Gu yons canal. She's had transient improvement with carpal tunnel injections in the past. We discussed her treatment options and she elects to proceed with surgical intervention. Description of Procedure: Patient, operative extremity, and procedure were identified in the preoperative holding area. After informed consent was obtained the patient was brought back to the operating room. After sedation was provided by the anesthesia team a local block was performed with 1% lidocaine with epinephrine and half percent Marcaine. The upper extremity was then prepped and draped in normal sterile fashion with a tourniquet along the patient's brachium. A formal timeout was performed and the tourniquet was inflated. Attention was first turned to the elbow. A longitudinal incision was made along the medial aspect of the elbow between the medial epicondyle and the olecranon. Dissection was carried down to the forearm fascia between the FCU heads. Care was taken protect the cutaneous nerves. Ulnar nerve was then identified beneath the fascia overlying the FCU, the FCU muscles, and the fascia beneath the FCU muscles. These were all released. The ulnar nerve was then followed proximally under Maurer's ligament and behind the intermuscular septum. All restricting structures were released. The elbow was then taken through its full range of motion and there was no subluxation of the ulnar nerve. Attention was then turned to the wrist. A longitudinal incision was made just ulnar to the hyperthenar crease in the palm and crossing the risk in a Christine type incision. Dissection was carried down to the ulnar neurovascular bundle in the palm. This is taken medially and the hamate was identified. Hyperthenar muscles were released off the hook of the hamate and the deep ulnar nerve motor branch was identified and released. The ulnar neurovascular bundle was followed proximally. There was a small collection of fatty tissue superficial to the forearm fascia. This was removed. The fascia overlying the ulnar neurovascular bundle was also released. Attention was turned back to the the hamate and the carpal tunnel was accessed by transecting the transverse carpal ligament off of the hamate. The ligament was released in its entirety until the fat pad distally was visualized. Median nerve was identified and found to be scarred to the transverse carpal ligament. This was followed proximally where the nerve was very adhered to the forearm fascia. This was carefully neurolysed and from the forearm fascia, and a neuroma in continuity was identified. A 10 mm wide nerve wrap was divided in flattened. After it was rehydrated it was laid over top the median nerve to prevent scar formation to the forearm fascia. Tourniquet was then let down and hemostasis was achieved and the wounds were closed in layered fashion with 4-0 Monocryl, skin glue, and Steri-Strips. Wounds were dressed with Adaptic 4 x 4's Kerlix and an Twin wrap. Patient was aroused by the anesthesia team and brought back to PACU in stable condition she'll be discharged and see us back in 2 weeks.
== END 2021-09-18 20:26 | disposition home or self-care (01) ==
LOC: OR 11:08
PROVIDERS: ATTEND Orthopaedic Surgery Hand Surgery
DX: G56.01 Carpal tunnel syndrome, right upper limb (principal); S64.21XA Injury of radial nerve at wrist and hand level of right arm, initial encounter; G56.21 Lesion of ulnar nerve, right upper limb; D36.12 Benign neoplasm of peripheral nerves and autonomic nervous system, upper limb, including shoulder; J44.9 Chronic obstructive pulmonary disease, unspecified; F43.10 Post-traumatic stress disorder, unspecified; D64.9 Anemia, unspecified; Z79.1 Long term (current) use of non-steroidal anti-inflammatories (NSAID); Z79.51 Long term (current) use of inhaled steroids; Z79.899 Other long term (current) drug therapy; Z88.5 Allergy status to narcotic agent
CPT/HCPCS: 64718; 64721; 64719; C1713; J2250; J1100; J2405; J3010; J1170; J2704; J1790

== ENCOUNTER → 2021-11-10 | Outpatient (CLI) | payer OTHER ==
--- NOTE | 2021-11-14 14:35 | MM ---
Reason for exam: screening (asymptomatic). Last mammogram was performed 1 year and 1 month ago. History: Patient is postmenopausal. Family history of breast cancer in maternal aunt at age 50. Physical Findings: A clinical breast exam by your physician is recommended on an annual basis and results should be correlated with mammographic findings. MG Screening Mammo w CAD Bilateral CC and MLO view(s) were taken. Prior study comparison: October 13, 2020, bilateral MG screening mammo w CAD. April 17, 2017, bilateral MG diagnostic mammo w CAD [facility]. The breast tissue is heterogeneously dense. This may lower the sensitivity of mammography. There is no discrete abnormality. ASSESSMENT: Negative, BI-RAD 1 RECOMMENDATION: Routine screening mammogram of both breasts in 1 year.
== END | disposition home or self-care (01) ==
LOC: RADMAMWWP 08:14
PROVIDERS: ATTEND Obstetrics & Gynecology
DX: Z12.31 Encounter for screening mammogram for malignant neoplasm of breast (principal); Z80.3 Family history of malignant neoplasm of breast; Z78.0 Asymptomatic menopausal state
CPT/HCPCS: 77067

== ENCOUNTER → 2023-01-07 | Outpatient (CLI) | payer OTHER ==
--- NOTE | 2023-01-07 11:00 | CA ---
Exercise Stress Test Report Name: Pina Mercado Exam Date: 01/07/2023 09:55 Exam Location: [facility] Stress Ht (in): 63 Wt (lb): 150 BSA: 1.71 Ordering Phys: Yaya Cheung DO Referring Phys: Vale Bustos Technologist: DILMA,, Age: 42 Gender: F : 1980 Procedure CPT: Indications: I45.81 long QT interval ICD-10 Codes: Patient History: Hypertension, Palpitations and long QT interval Medications: Meds past 24 hrs: Pretest Chest Pain: STRESS TEST Enrrique Protocol Exercise Duration (min:sec): 10:[address] Depressions (mm): Angina Score: Valenzuela Score: Resting HR (bpm): 74 Peak HR (bpm): 163 Resting BP (mmHg): 124 / 69 Peak BP (mmHg): 168 / 75 MPHR: 178 Target HR: 151 % MPHR: 92 METS: 12.1 Total Dose: Peak Dose: Atropine: Double Product: 23876 BP Response: Stress Termination: TARGET HR REACHED/MAX EXERTION Stress Symptoms: NO SYMPTOMS Stress Summary: ECG ANALYSIS Resting ECG: Stress ECG: CONCLUSIONS Baseline EKG revealed a normal sinus rhythm without significant ST-T changes. Patient walked on a standard Enrrique protocol for a total duration of 10 minutes and achieved a maximum heart rate of 163 bpm which is more than 85% of predicted maximal. Patient did not have any angina. There was no arrhythmia. EKG did not reveal any ST segment changes to indicate ischemia. By EKG criteria this is a negative stress test with excellent exercise capacity. No evidence of any ischemia noted. Dr. Tracie Fernández MD (Electronically Signed) Final Date: 07 Jan 2023 10:59
== END | disposition home or self-care (01) ==
LOC: RADNMMAIN 08:31
PROVIDERS: ATTEND Family Medicine
DX: I45.81 Long QT syndrome (principal)
CPT/HCPCS: 93017

== ENCOUNTER → 2024-06-29 | Outpatient (CLI) | payer OTHER ==
--- NOTE | 2024-06-29 09:26 | XR ---
EXAMINATION TYPE: XR lumbar spine 2 or 3V DATE OF EXAM: 06/29/2024 9:22 AM COMPARISON: None. CLINICAL INDICATION: Female, 43 years old with history of M54.50 Low back pain; TECHNIQUE: XR lumbar spine 2 or 3V views are submitted. FINDINGS: Alignment is anatomic. The pedicles are intact. The transverse processes are intact. There is mult ilevel [id number] degenerative disc disease with facet arthropathy. Pedicles are intact. Grade 1 anterolisthesis L4-L5. IMPRESSION: 1. Multilevel [id number] degenerative disc disease. [facility], , 06/29/2024 9:24 AM
--- NOTE | 2024-06-29 09:29 | XR ---
EXAMINATION TYPE: XR cervical spine comp DATE OF EXAM: 06/29/2024 COMPARISON: NONE CLINICAL INDICATION: Female, 43 years old with history of M54.50 Low back pain; TECHNIQUE: Four views are submitted. FINDINGS: The odontoid is intact. There are no compression deformities. The prevertebral soft tissue structur es are within normal limits. Multilevel facet arthropathy and grade 1 anterolisthesis C2-3 C3-C4. Se yahir degenerative disc disease at level C4-C7. Retrolisthesis C4-5 and C5-6 and C6-C7. Multilevel fac et arthropathy. IMPRESSION: 1. Multilevel severe degenerative disc disease with facet arthropathy. Multilevel anterolisthesis and retrolisthesis as discussed above. Suspect foraminal encroachment and canal stenosis at multiple lev els. Recommend follow-up MRI. [facility], , 06/29/2024 9:27 AM
== END | disposition home or self-care (01) ==
LOC: RADXRMAIN 08:50
PROVIDERS: ATTEND Family Medicine
DX: M51.369 Other intervertebral disc degeneration, lumbar region without mention of lumbar back pain or lower extremity pain (principal); M50.31 Other cervical disc degeneration, high cervical region; M43.16 Spondylolisthesis, lumbar region
CPT/HCPCS: 72050; 72100